=== PATIENT | male | born 1980 | race African-American/Black ===

== ENCOUNTER 2017-04-22 21:14 | Inpatient (IN) | payer OTHER ==
[2017-04-22 22:07] LABS: HEMATOCRIT 48.2 % (42.0-52.0); HEMOGLOBIN 15.6 g/dl (14.0-18.0); MEAN CORPUSCULAR HEMOGLOBIN 28.7 pg (27.0-33.0); MEAN CORPUSCULAR HGB CONC 32.4 g/dl (32.0-36.5); MEAN CORPUSCULAR VOLUME 88.8 fl (80.0-96.0); PLATELET COUNT, AUTOMATED 275 10^3/uL (150-450); RED BLOOD COUNT 5.43 10^6/uL (4.30-6.10); WHITE BLOOD COUNT 9.1 10^3/uL (4.0-10.0)
[2017-04-22 22:32] LABS: AMPHETAMINES LEVEL URINE NEGATIVE (NEGATIVE); BARBITURATES URINE NEGATIVE (NEGATIVE); BENZODIAZEPINES URINE NEGATIVE (NEGATIVE); CANNABINOIDS URINE NEGATIVE (NEGATIVE); COCAINE METABOLITE URINE NEGATIVE (NEGATIVE); METHADONE URINE NEGATIVE (NEGATIVE); OPIATES URINE NEGATIVE (NEGATIVE); PHENCYCLIDINE URINE NEGATIVE (NEGATIVE)
[2017-04-22 22:41] LABS: ALBUMIN/GLOBULIN RATIO 1.05 (1.00-1.93); ALKALINE PHOSPHATASE 62 U/L (45-117); ALT/SGPT 21 U/L (12-78); ANION GAP 7 MEQ/L (8-16); AST/SGOT 19 U/L (7-37); BILIRUBIN,DIRECT 0.1 MG/DL (0.0-0.2); BILIRUBIN,TOTAL 0.6 MG/DL (0.2-1.0); BLOOD UREA NITROGEN 12 MG/DL (7-18); CARBON DIOXIDE LEVEL 34 MEQ/L (21-32); CHLORIDE LEVEL 100 MEQ/L (98-107); CREATININE FOR GFR 1.35 MG/DL (0.70-1.30); GLOMERULAR FILTRATION RATE > 60.0 (>60); GLUCOSE, FASTING 98 MG/DL (70-105); POTASSIUM SERUM 3.9 MEQ/L (3.5-5.1); SALICYLATE LEVEL < 1.7 MG/DL (5.0-30.0); SODIUM LEVEL 141 MEQ/L (136-145); TOTAL PROTEIN 7.8 GM/DL (6.4-8.2)
[2017-04-22 22:48] LABS: ACETAMINOPHEN LEVEL < 2.0 UG/ML (10.0-30.0); ETHYL ALCOHOL (ETHANOL) < 0.003 % (0.000-0.010)
[2017-04-22] MEDS ORDERED: MAALOX 30 ML SUSP *UDC PO (23:15)
[2017-04-22] MEDS ORDERED: traZODone 50 MG TAB PO (23:15)
[2017-04-22] MEDS ORDERED: ACETAMINOPHEN TAB 650MG DOSE (2X325MG) PO (23:15)
[2017-04-22] MEDS ORDERED: MOM 30ML SUSPENSION UDC PO (23:15)
[2017-04-23 10:11] LABS: HEMATOCRIT 46.6 % (42.0-52.0); HEMOGLOBIN 15.3 g/dl (14.0-18.0); MEAN CORPUSCULAR HEMOGLOBIN 28.9 pg (27.0-33.0); MEAN CORPUSCULAR HGB CONC 32.8 g/dl (32.0-36.5); MEAN CORPUSCULAR VOLUME 88.1 fl (80.0-96.0); PLATELET COUNT, AUTOMATED 275 10^3/uL (150-450); RED BLOOD COUNT 5.29 10^6/uL (4.30-6.10); RED CELL DISTRIBUTION WIDTH 13.1 % (11.5-14.5)
[2017-04-23] MEDS: hydroCHLOROthiazide 12.5 MG CAPSULE PO (10:31)
[2017-04-23] MEDS: TELMISARTAN 20 MG TAB PO (10:32)
[2017-04-23 10:44] LABS: ALBUMIN 4.1 GM/DL (3.2-5.2); ALBUMIN/GLOBULIN RATIO 1.14 (1.00-1.93); ALKALINE PHOSPHATASE 62 U/L (45-117); ALT/SGPT 20 U/L (12-78); ANION GAP 10 MEQ/L (8-16); AST/SGOT 20 U/L (7-37); BILIRUBIN,TOTAL 0.5 MG/DL (0.2-1.0); BLOOD UREA NITROGEN 15 MG/DL (7-18); CALCIUM LEVEL 9.3 MG/DL (8.5-10.1); CARBON DIOXIDE LEVEL 29 MEQ/L (21-32); CHLORIDE LEVEL 103 MEQ/L (98-107); CPK CREATINE PHOSPHOKINASE 292 U/L (39-308); CREATININE FOR GFR 1.41 MG/DL (0.70-1.30); GLOMERULAR FILTRATION RATE > 60.0 (>60); GLUCOSE, FASTING 116 MG/DL (70-105); MB/CK RELATIVE INDEX 0.68 (< OR =4); POTASSIUM SERUM 4.1 MEQ/L (3.5-5.1); SODIUM LEVEL 142 MEQ/L (136-145); TOTAL PROTEIN 7.7 GM/DL (6.4-8.2); TROPONIN I < 0.02 NG/ML (< 0.10)
[2017-04-23] MEDS: SERTRALINE HCL 50 MG TAB PO (16:13)
[2017-04-23] MEDS: PRAZOSIN 1 MG CAP PO (22:09)
[2017-04-23] MEDS: traZODone 50 MG TAB PO (22:10)
[2017-04-24 08:02] LABS: ANION GAP 6 MEQ/L (8-16); BLOOD UREA NITROGEN 17 MG/DL (7-18); CALCIUM LEVEL 8.9 MG/DL (8.5-10.1); CARBON DIOXIDE LEVEL 31 MEQ/L (21-32); CHLORIDE LEVEL 101 MEQ/L (98-107); CREATININE FOR GFR 1.36 MG/DL (0.70-1.30); GLOMERULAR FILTRATION RATE > 60.0 (>60); GLUCOSE, FASTING 113 MG/DL (70-105); SODIUM LEVEL 138 MEQ/L (136-145)
[2017-04-24] MEDS: TELMISARTAN 20 MG TAB PO (08:32)
[2017-04-24] MEDS: SERTRALINE HCL 50 MG TAB PO (08:32)
[2017-04-24] MEDS: hydroCHLOROthiazide 12.5 MG CAPSULE PO (08:32)
[2017-04-24] MEDS: traZODone 50 MG TAB PO (22:33)
[2017-04-24] MEDS: PRAZOSIN 1 MG CAP PO (22:33)
[2017-04-25] MEDS: TELMISARTAN 20 MG TAB PO (09:11)
[2017-04-25] MEDS: hydroCHLOROthiazide 12.5 MG CAPSULE PO (09:12)
[2017-04-25] MEDS: SERTRALINE HCL 50 MG TAB PO (09:12)
[2017-04-25] MEDS: PRAZOSIN 1 MG CAP PO (22:17)
[2017-04-25] MEDS: traZODone 50 MG TAB PO (22:17)
[2017-04-26] MEDS: TELMISARTAN 20 MG TAB PO (08:24)
[2017-04-26] MEDS: SERTRALINE HCL 50 MG TAB PO (08:24)
[2017-04-26] MEDS: hydroCHLOROthiazide 12.5 MG CAPSULE PO (08:24)
[2017-04-26] MEDS: PRAZOSIN 1 MG CAP PO (21:50)
[2017-04-26] MEDS: traZODone 50 MG TAB PO (21:50)
[2017-04-27] MEDS: SERTRALINE HCL 50 MG TAB PO (08:39)
[2017-04-27] MEDS: hydroCHLOROthiazide 12.5 MG CAPSULE PO (08:39)
[2017-04-27] MEDS: TELMISARTAN 20 MG TAB PO (08:40)
[2017-04-27] MEDS ORDERED: DOXEPIN 25 MG CAP PO (21:00)
[2017-04-27] MEDS: amLODIPine 5 MG TAB PO (22:15)
[2017-04-27] MEDS: PRAZOSIN 1 MG CAP PO (22:17)
[2017-04-28] MEDS: TELMISARTAN 20 MG TAB PO (08:20)
[2017-04-28] MEDS: SERTRALINE HCL 50 MG TAB PO (08:20)
[2017-04-28] MEDS: PRAZOSIN 1 MG CAP PO (22:24)
[2017-04-28] MEDS: amLODIPine 5 MG TAB PO (22:24)
[2017-04-29] MEDS: SERTRALINE HCL 50 MG TAB PO (08:16)
[2017-04-29] MEDS: TELMISARTAN 20 MG TAB PO (08:17)
[2017-04-29 08:25] LABS: ANION GAP 3 MEQ/L (8-16); BLOOD UREA NITROGEN 15 MG/DL (7-18); CARBON DIOXIDE LEVEL 35 MEQ/L (21-32); CHLORIDE LEVEL 101 MEQ/L (98-107); GLOMERULAR FILTRATION RATE > 60.0 (>60); GLUCOSE, FASTING 106 MG/DL (70-105); POTASSIUM SERUM 4.3 MEQ/L (3.5-5.1); SODIUM LEVEL 139 MEQ/L (136-145)
[2017-04-29] MEDS: amLODIPine 5 MG TAB PO ×2 (09:37→21:56)
[2017-04-29] MEDS: hydrOXYzine 25 MG TAB PO (12:19)
[2017-04-29] MEDS ORDERED: hydrOXYzine 25 MG TAB PO (18:00)
[2017-04-29] MEDS: PRAZOSIN 1 MG CAP PO (21:56)
[2017-04-30] MEDS: TELMISARTAN 20 MG TAB PO (08:33)
[2017-04-30] MEDS: amLODIPine 5 MG TAB PO (08:33)
[2017-04-30] MEDS: SERTRALINE HCL 50 MG TAB PO (08:33)
== END 2017-04-30 09:30 | DRG 882 ==
LOC: M PSY 23:57 → M ED 21:14 → M ED INP 23:03
DX: F43.10 Post-traumatic stress disorder, unspecified (principal); F44.9 Dissociative and conversion disorder, unspecified; I10 Essential (primary) hypertension; G47.00 Insomnia, unspecified; Z91.5 Personal history of self-harm; Z79.899 Other long term (current) drug therapy; Z88.5 Allergy status to narcotic agent; Z88.6 Allergy status to analgesic agent

== ENCOUNTER 2018-08-23 14:33 | Emergency (ER) | payer OTHER ==
[~2018-08-23] VITALS: Ht 165.1 cm; Wt 81.8 kg
[~2018-08-23 14:33] MED LIST: AMLO5TAB6 PO; HYDR-3363 PO; MICA40TA2 PO; MINI1CAP PO; PATIENT COMMENT; SERT-141 PO
[2018-08-23] MEDS ORDERED: RISP2TAB3 (16:25)
[2018-08-23] MEDS ORDERED: HYDR25TAB (16:25)
[2018-08-23] MEDS ORDERED: MELO15TA28 (16:25)
[2018-08-23] MEDS ORDERED: ZOLP10TA2 (16:25)
[2018-08-23 17:09] LABS: HEMATOCRIT 43.4 % (42.0-52.0); HEMOGLOBIN 13.8 g/dl (13.5-17.5); MEAN CORPUSCULAR HEMOGLOBIN 28.4 pg (27.0-33.0); MEAN CORPUSCULAR HGB CONC 31.8 g/dl (32.0-36.5); MEAN CORPUSCULAR VOLUME 89.3 fl (80.0-96.0); PLATELET COUNT, AUTOMATED 275 10^3/uL (150-450); RED BLOOD COUNT 4.86 10^6/uL (4.30-6.10)
--- NOTE | 2018-08-23 17:24 | REP ---
Chest one-view HISTORY: Chest tightness Comparison: 10/12/2017 The lungs are clear. The heart is normal in size. The pulmonary vasculature is normal in appearance. Impression: No acute disease. Electronically Signed by Vitor Almeida MD 08/23/2018 05:15 P
[2018-08-23 17:31] LABS: BLOOD UREA NITROGEN 15 MG/DL (7-18); CALCIUM LEVEL 8.7 MG/DL (8.5-10.1); CARBON DIOXIDE LEVEL 31 MEQ/L (21-32); CHLORIDE LEVEL 104 MEQ/L (98-107); CPK CREATINE PHOSPHOKINASE 273 U/L (39-308); CREATININE FOR GFR 1.14 MG/DL (0.70-1.30); GLOMERULAR FILTRATION RATE > 60.0 (>60); GLUCOSE, FASTING 108 MG/DL (70-100); MB/CK RELATIVE INDEX 0.77 (< OR =4); POTASSIUM SERUM 4.4 MEQ/L (3.5-5.1); SODIUM LEVEL 141 MEQ/L (136-145); TROPONIN I < 0.02 NG/ML (< 0.10)
[2018-08-23 17:54] VITALS: BP 157/97
--- NOTE | 2018-08-24 07:20 | ECGEPIP ---
Stationary ECG Study [facility] - ED Test Date: 2018-08-23 Pat Name: KENNEDY FITCH Department: Room: - Gender: M Vp Lab: : [id number] Requested By: RACQUEL Cisneros PA-C Order Number: [id number] Reading MD: Ni Barber Measurements Intervals [place] Rate: 57 P: 66 CA: 153 QRS: 18 QRSD: 100 T: 19 QT: 406 QTc: 397 Interpretive Statements SINUS BRADYCARDIA ST ELEVATION, PROBABLY EARLY REPOLARIZATION VS ISCHEMIA, CLINICAL CORRELATION Electronically Signed On 08-24-2018 7:20:03 EDT by Ni Barber
== END 2018-08-23 18:11 | disposition home or self-care (01) ==
LOC: M ED 14:33
DX: I10 Essential (primary) hypertension (principal); R31.9 Hematuria, unspecified; R00.1 Bradycardia, unspecified; R07.89 Other chest pain; Z87.891 Personal history of nicotine dependence; Z88.5 Allergy status to narcotic agent; Z88.6 Allergy status to analgesic agent; Z79.899 Other long term (current) drug therapy

== ENCOUNTER → 2019-08-22 | Outpatient (CLI) | payer OTHER ==
[~2019-08-22] MED LIST changes: +HYDR25TAB; +MELO15TA28; +RISP2TAB3; +ZOLP10TA2
== END ==
LOC: M OUTALCOH 09:58
PROVIDERS: ATTEND Psychiatry & Neurology Addiction Medicine
DX: Z03.89 Encounter for observation for other suspected diseases and conditions ruled out (principal)

== ENCOUNTER 2019-08-30 13:25 | Outpatient (RCR) | payer OTHER | END 2019-09-11 | LOC: M OUTALCOH 13:25 | PROVIDERS: ATTEND Psychiatry & Neurology Addiction Medicine | DX: Z03.89 Encounter for observation for other suspected diseases and conditions ruled out (principal) ==

== ENCOUNTER → 2019-11-21 | Emergency (ER) | payer OTHER ==
[~2019-11-21] MED LIST changes: +AMLO1TAB24 PO; -AMLO5TAB6 PO
[2020-01-05 10:17] LABS: BASO # 0.1 10^3/uL (0.0-0.2); BASO % 0.7 % (0.0-1.0); EOS # 0.1 10^3/uL (0.0-0.5); EOS % 0.7 % (0.0-3.0); HEMATOCRIT 48.3 % (42.0-52.0); HEMOGLOBIN 15.2 g/dl (13.5-17.5); LYMPH # 2.1 10^3/uL (1.5-5.0); LYMPH % 27.4 % (24.0-44.0); MEAN CORPUSCULAR HGB CONC 31.5 g/dl (32.0-36.5); MEAN CORPUSCULAR VOLUME 92.2 fl (80.0-96.0); MONO # 0.7 10^3/uL (0.0-0.8); MONO % 9.2 % (0.0-5.0); NEUTROPHILS # 4.7 10^3/uL (1.5-8.5); NEUTROPHILS % 61.3 % (36.0-66.0); PLATELET COUNT, AUTOMATED 282 10^3/uL (150-450); RED BLOOD COUNT 5.24 10^6/uL (4.30-6.10); WHITE BLOOD COUNT 7.7 10^3/uL (4.0-10.0)
[2020-02-04 21:52] LABS: BLOOD UREA NITROGEN 15 MG/DL (7-18); CALCIUM LEVEL 9.4 MG/DL (8.5-10.1); CARBON DIOXIDE LEVEL 34 MEQ/L (21-32); CHLORIDE LEVEL 105 MEQ/L (98-107); GLOMERULAR FILTRATION RATE > 60.0 (>60); GLUCOSE, FASTING 93 MG/DL (70-100); POTASSIUM SERUM 4.1 MEQ/L (3.5-5.1); SODIUM LEVEL 141 MEQ/L (136-145)
== END | disposition home or self-care (01) ==
LOC: M ED 11:45
DX: M79.621 Pain in right upper arm (principal); L02.421 Furuncle of right axilla; F43.10 Post-traumatic stress disorder, unspecified; Z88.5 Allergy status to narcotic agent; Z79.899 Other long term (current) drug therapy

== ENCOUNTER → 2021-11-04 | Outpatient (CLI) | payer OTHER ==
[~2021-11-04] MED LIST changes: +HYDR-3490; -HYDR25TAB; +RISP-9; -RISP2TAB3
== END ==
LOC: M SLEEP 20:00
PROVIDERS: ATTEND Nurse Practitioner Family
DX: G47.8 Other sleep disorders (principal)

== ENCOUNTER 2022-03-04 11:58 | Emergency (ER) | payer OTHER ==
[~2022-03-04] VITALS: Ht 165.1 cm; Wt 83.2 kg
[2022-03-04] MEDS ORDERED: LOSA100T5 (12:09)
[2022-03-04] MEDS ORDERED: ZOLO100T (12:09)
[2022-03-04] MEDS ORDERED: PRAZ5CAP (12:09)
[2022-03-04 12:46] LABS: BASO % 0.6 % (0.0-1.0); EOS # 0.1 10^3/uL (0.0-0.5); EOS % 1.8 % (0.0-3.0); HEMATOCRIT 42.6 % (42.0-52.0); HEMOGLOBIN 13.9 g/dl (13.5-17.5); LYMPH % 37.6 % (24.0-44.0); MEAN CORPUSCULAR HEMOGLOBIN 29.2 pg (27.0-33.0); MEAN CORPUSCULAR HGB CONC 32.6 g/dl (32.0-36.5); MEAN CORPUSCULAR VOLUME 89.5 fl (80.0-96.0); MONO # 0.6 10^3/uL (0.0-0.8); MONO % 10.7 % (2.0-8.0); NEUTROPHILS # 2.7 10^3/uL (1.5-8.5); NEUTROPHILS % 49.1 % (36.0-66.0); PLATELET COUNT, AUTOMATED 270 10^3/uL (150-450); RED BLOOD COUNT 4.76 10^6/uL (4.30-6.10); WHITE BLOOD COUNT 5.4 10^3/uL (4.0-10.0)
[2022-03-04 14:43] LABS: BLOOD UREA NITROGEN 11 MG/DL (9-23); CALCIUM LEVEL 8.3 MG/DL (8.5-10.1); CARBON DIOXIDE LEVEL 24 MMOL/L (20-31); CHLORIDE LEVEL 105 MMOL/L (98-107); CK-MB VALUE MASS 1.3 NG/ML (<3.6); CPK CREATINE PHOSPHOKINASE 220 U/L (46-171); CREATININE FOR GFR 1.11 MG/DL (0.70-1.30); GLOMERULAR FILTRATION RATE > 60.0 (>60); GLUCOSE, FASTING 79 MG/DL (60-100); MB/CK RELATIVE INDEX 0.59 (< OR =4); POTASSIUM SERUM 4.8 MMOL/L (3.5-5.1); SODIUM LEVEL 138 MMOL/L (136-145)
[2022-03-04 14:56] LABS: CK-MB VALUE MASS 2.2 NG/ML (<3.6); MB/CK RELATIVE INDEX 0.96 (< OR =4)
[2022-03-04 14:59] LABS: ALBUMIN 3.9 G/DL (3.2-5.2); BILIRUBIN,DIRECT 0.1 MG/DL (<0.4); BILIRUBIN,TOTAL 0.6 MG/DL (0.3-1.2); FREE T4 1.11 NG/DL (0.89-1.76); THYROID STIMULATING HORMONE 1.207 uIU/ML (0.55-4.78)
[2022-03-04 15:48] VITALS: BP 153/85
== END 2022-03-04 15:55 | disposition home or self-care (01) ==
LOC: M ED 11:58
DX: R07.9 Chest pain, unspecified (principal); I10 Essential (primary) hypertension; I25.2 Old myocardial infarction; J45.909 Unspecified asthma, uncomplicated; Z79.899 Other long term (current) drug therapy; Z95.1 Presence of aortocoronary bypass graft; Z88.8 Allergy status to other drugs, medicaments and biological substances; Z88.5 Allergy status to narcotic agent